=== PATIENT | female | born 1995 | race Caucasian/White ===

== ENCOUNTER 2019-09-26 10:20 | Emergency (ER) | payer MEDICAID ==
[2019-09-26 10:40] VITALS: BP 112/74; PULSE 92; O2SAT 100
[2019-09-26] MEDS ORDERED: solu-MEDROL 125 MG IM ONE (10:44)
[2019-09-26] MEDS ORDERED: BENADRYL 50 MG/ML IM ONE (10:45)
--- NOTE | 2019-09-26 10:46 | ERPHSYRPT ---
- History of Present Illness Time Seen by Provider: 09/26/19 10:36 Source: patient Exam Limitations: no limitations Patient Subjective Stated Complaint: pt here for possible posion tori she has had a rash for 2 days after working outside Triage Nursing Assessment: pt alert, walked in ,no distress, resp easy, has rash to arms trunk and face Physician History: 24 years old female presented in the ER with chief complaint of rash on the bilateral forearms, abdomen, back with itching/pruritus after she worked outside in the yard 2 days ago. Overnight is getting worse. She has applied calamine lotion with no significant relief. No fever or chills reported. Denies any sore throat/scratchiness in the throat/difficulty breathing etc. Timing/Duration: yesterday Quality: burning, itchy, painful Severity: moderate Location: torso, extremities Possible Causes: exposure to allergen Associated Symptoms: No change in skin texture, No difficulty breathing, No fever, No nasal congestion, No sore throat, No swelling/mass/lumps Allergies/Adverse Reactions: sulfamethoxazole [From Bactrim] Allergy (Verified 09/26/19 10:40) trimethoprim [From Bactrim] Allergy (Verified 09/26/19 10:40) Hx Tetanus, Diphtheria Vaccination/Date Given: No Hx Influenza Vaccination/Date Given: No Hx Pneumococcal Vaccination/Date Given: No Immunizations Up to Date: Yes Travel Risk - International Travel Have you traveled outside of the country in past 3 weeks: No Have you or anyone close to you been diagnosed with or: No Do your reside in a community with a known COVID-19 case?: Yes If Yes where:: [place] - Coronavirus Screening Has patient experienced Coronavirus symptoms: No - Review of Systems Constitutional: No Symptoms Eyes: No Symptoms Ears, Nose, & Throat: No Symptoms Respiratory: No Symptoms Cardiac: No Symptoms Abdominal/Gastrointestinal: No Symptoms Genitourinary Symptoms: No Symptoms Musculoskeletal: No Symptoms Skin: Pruritis, Rash, Skin Lesions Neurological: No Symptoms Psychological: No Symptoms Endocrine: No Symptoms Hematologic/Lymphatic: No Symptoms - Past Medical History Pertinent Past Medical History: No - Past Surgical History Past Surgical History: No - Social History Smoking Status: Never smoker Exposure to second hand smoke: No Drug Use: none Patient Lives Alone: No - Female History Hx Last Menstrual Period: week ago Hx Now: No - Nursing Vital Signs Nursing Vital Signs: Initial Vital Signs Temperature 98.4 F 09/26/19 10:33 Pulse Rate 92 H 09/26/19 10:33 Respiratory Rate 18 09/26/19 10:33 Blood Pressure 112/74 09/26/19 10:33 O2 Sat by Pulse Oximetry 100 09/26/19 10:33 Pain Scale Pain Intensity 0 - Physical Exam General Appearance: no apparent distress Eye Exam: PERRL/EOMI, eyes nml inspection Ears, Nose, Throat Exam: normal ENT inspection, TMs normal, pharynx normal Neck Exam: normal inspection, non-tender, supple, full range of motion Respiratory Exam: normal breath sounds, lungs clear Cardiovascular Exam: regular rate/rhythm, normal heart sounds Gastrointestinal/Abdomen Exam: soft, normal bowel sounds Extremity Exam: normal inspection Neurologic Exam: alert, oriented x 3, cooperative Skin Exam: rash (Multiple linear rash with small vesicles and itch abbasi on the forearms, back and abdomen. No active discharge or erythema/swelling around.) SpO2 Interpretation: normal SpO2: 100 O2 Delivery: Room Air - Course Nursing assessment & vital signs reviewed: Yes Ordered Tests: Medication Summary Discontinued Medications Generic Name Dose Route Start Last Admin Trade Name Freq PRN Reason Stop Dose Admin Diphenhydramine HCl 25 mg 09/26/19 10:45 09/26/19 10:51 Benadryl 50 Mg/Ml IM 09/26/19 10:46 25 mg STAT ONE Administration Diphenhydramine HCl Confirm 09/26/19 10:50 Benadryl 50 Mg/Ml Administered 09/26/19 10:51 Dose 50 mg .ROUTE .STK-MED ONE Methylprednisolone Sodium Succinate 80 mg 09/26/19 10:44 09/26/19 10:51 Solu-Medrol 125 Mg IM 09/26/19 10:45 80 mg STAT ONE Administration Methylprednisolone Sodium Succinate Confirm 09/26/19 10:50 Solu-Medrol 125 Mg Administered 09/26/19 10:51 Dose 125 mg .ROUTE .STK-MED ONE - Progress Progress: re-examined Progress Note: 09/26/19 I believe patient has contact plant dermatitis. Started on prednisone and Benadryl. Recommended outpatient follow-up. Discussed signs symptoms of worsening needing return to ER which he seems understanding. Stable for discharge. Counseled pt/family regarding: diagnosis, need for follow-up - Departure Departure Disposition: Home Clinical Impression: Allergic dermatitis Condition: Stable Critical Care Time: No Referrals: KINZA DIAZ [ACTIVE STAFF] - Instructions: Poison [place], Poison [place], Poison [place] ([place]) Additional Instructions: follow up with PC FOR RE EVALUATIONS. RETURN TO ER FOR ANY WORSENING RASH, DISCHARGE, SWELLING/REDNESS, FEVER OR CHILLS ETC. Prescriptions: Diphenhydramine HCl [Benadryl Allergy] 25 mg PO Q6HPRN PRN #20 tablet PRN Reason: Allergies Prednisone 50 mg PO DAILY #5 tablet
[2019-09-26] MEDS ORDERED: BENADRYL 50 MG/ML ONE (10:50)
[2019-09-26] MEDS ORDERED: solu-MEDROL 125 MG ONE (10:50)
== END 2019-09-26 11:15 | disposition home or self-care (01) ==
LOC: ED 10:20
DX: L23.9 Allergic contact dermatitis, unspecified cause (principal)
CPT/HCPCS: 96372; 99283; J1200; J2930